=== PATIENT | male | born 1950 | race Caucasian/White ===

== ENCOUNTER 2022-01-07 06:20 | Day surgery (SDC) | payer OTHER ==
[2022-01-03 13:08] VITALS: BMI 25.1
[2022-01-07] MEDS ORDERED: BUPIVACAINE HCL 150 ML ONE (07:11)
[2022-01-07] MEDS ORDERED: LIDOCAINE 1%/EPI 1:100000 (20 ML MULTI DOSE VIAL) ONE (07:12)
[2022-01-07] MEDS ORDERED: MIDAZOLAM HCL 2 MG/2 ML SINGLE DOSE VIAL ONE (07:43)
[2022-01-07] MEDS ORDERED: PROPOFOL 20 ML ONE (07:43)
[2022-01-07] MEDS ORDERED: ONDANSETRON 4 MG/2 ML VIAL ONE ×2 (08:08→08:36)
[2022-01-07] MEDS ORDERED: DEXAMETHASONE SOD PHOSPHATE 4 MG/1 ML VIAL ONE (08:08)
[2022-01-07] MEDS ORDERED: KETOROLAC TROMETHAMINE 30 MG/1 ML VIAL ONE (08:36)
[2022-01-07] MEDS ORDERED: oxyCODONE HCL 5 MG TABLET PO PRN (08:47)
[2022-01-07] MEDS ORDERED: ONDANSETRON 4 MG/2 ML VIAL IVPUSH PRN (08:47)
[2022-01-07] MEDS ORDERED: LACTATED RINGERS SOLUTION 1,000 ML IV SCH (09:00)
[2022-01-07 10:11] VITALS: BP 145/82
[2022-01-07 10:23] VITALS: PULSE 56; TEMP 97.8
== END 2022-01-07 10:23 | disposition home or self-care (01) ==
LOC: FASU 06:20
PROVIDERS: ATTEND Orthopaedic Surgery
PROC: 0SBD4ZZ Excision of Left Knee Joint, Percutaneous Endoscopic Approach (ICD-10-PCS; 2022-01-07)
PROC: 0SBD4ZZ Excision of Left Knee Joint, Percutaneous Endoscopic Approach (ICD-10-PCS; principal; 2022-01-07 08:00)
DX: S83.242A Other tear of medial meniscus, current injury, left knee, initial encounter (principal); S83.252A Bucket-handle tear of lateral meniscus, current injury, left knee, initial encounter; X58.XXXA Exposure to other specified factors, initial encounter; Y93.9 Activity, unspecified; Y92.9 Unspecified place or not applicable
CPT/HCPCS: 94760